=== PATIENT | female | born 1965 | race Two or more races ===

== ENCOUNTER 2021-06-06 14:45 | Emergency (ER) | payer SELFPAY ==
[~2021-06-06] VITALS: Ht 157.5 cm; Wt 81.0 kg
[2021-06-06 15:00] VITALS: BP 143/56
[2021-06-06] MEDS ORDERED: DEXAMETHASONE 4 MG TABLET PO ONE ×2 (15:15→15:30)
[2021-06-06] MEDS ORDERED: ONDA4TAB12 PO (15:25)
[2021-06-06] MEDS ORDERED: ALBU2.5V8 IH (15:25)
[2021-06-06] MEDS ORDERED: AZIT250T PO (15:25)
[2021-06-06] MEDS ORDERED: PRED20TA PO (15:25)
[2021-06-06] MEDS ORDERED: BENZ100C PO (15:25)
--- NOTE | 2021-06-06 15:26 | PHYS DOC ---
Past Medical History Past Medical History: Asthma Past Surgical History: No Surgical History Smoking Status: Never Smoker Alcohol Use: None Drug Use: None General Adult EDM: Chief Complaint: COUGH HPI: HPI: 55-year-old female presents with family with report of nonproductive cough x1 week. Patient also reports associated body aches with subjective fever and chills. Patient also reports associated nausea but denies any vomiting. Denies known exposure to COVID-19. Patient does report she has not received the COVID- 19 vaccination. Reports is able to taste and smell normally. Review of Systems: Review of Systems: Constitutional: Reports subjective fever and chills Eyes: Denies redness or eye pain HENT: Denies nasal congestion or sore throat Respiratory: Denies shortness of breath; reports nonproductive cough Cardiovascular: Denies chest pain or palpitations GI: Denies abdominal pain or vomiting; reports nausea : Denies dysuria or hematuria Musculoskeletal: Denies back pain or joint pain Integument: Denies rash or skin lesions Neurologic: Denies headache, focal weakness or sensory changes Complete systems were reviewed and found to be within normal limits, except as documented in this note. Heart Score: C/O Chest Pain: N/A Current Medications: Current Medications Medications (Trade) Dose Ordered Sig/Manisha Start Time Stop Time Status Last Admin Dose Admin Dexamethasone (Decadron) 10 mg 1X ONCE 06/06/21 15:15 06/06/21 15:16 DC Allergies: Allergies: Allergies Coded Allergies Type Severity Reaction Last Updated Verified No Known Drug Allergies 06/06/21 No Physical Exam: PE: Constitutional: Well developed, well nourished, ill appearing but non-toxic appearance HENT: Normocephalic, atraumatic Eyes: Conjunctiva normal, no discharge Neck: Normal range of motion, supple, no meningeal signs Lungs & Thorax: No respiratory distress, equal chest rise and fall Abdomen: Soft, no tenderness, no guarding Skin: Warm, dry, no erythema, no rash Back: No tenderness, no CVA tenderness Extremities: No tenderness, ROM intact, no edema Neurologic: Alert and oriented X 3, normal motor function, normal sensory function, no focal deficits noted Psychologic: Affect normal, judgment normal Current Patient Data: Vital Signs: Vital Signs Date Time Temp Pulse Resp B/P (MAP) Pulse Ox O2 Delivery O2 Flow Rate FiO2 06/06/21 15:00 100.1 79 12 143/56 98 Room Air 100.1 EKG: EKG: [] Radiology/Procedures: Radiology/Procedures: PROCEDURE: CHEST AP ONLY Portable chest x-ray without comparison for cough. FINDINGS: Lungs are clear. Cardiomediastinum is grossly unremarkable. No significant soft tissue or osseous abnormalities. IMPRESSION: 1. No acute cardiopulmonary abnormality. Electronically signed by: Marcus Carvalho MD (06/06/2021 4:07 PM) [id number] Course & Med Decision Making: Course & Med Decision Making Pertinent Labs and Imaging studies reviewed. (See chart for details) Patient presents with HPI and physical exam concerning for possible COVID-19 infection. Patient does have a history of asthma. Symptomatic treatment provided with oral steroid. Chest x-ray without acute finding. Given history of asthma will prescribe albuterol inhaler and continued steroids along with Tessalon Perles. Patient also given a empiric antibiotic with azithromycin. Patient stable for discharge with outpatient follow-up with PCP. Discussed findings and plan with patient and family, who acknowledge understanding and agreement. COVID-19 CRITERIA: The patient was evaluated during the global COVID-19 pandemic, and that diagnosis was suspected/considered upon their initial presentation. Their evaluation, treatment and testing was consistent with current guidelines for patients who present with complaints or symptoms that may be related to COVID-19. [place] Disclaimer: Dragkaren Disclaimer: This electronic medical record was generated, in whole or in part, using a voice recognition dictation system. Departure Departure Impression: Primary Impression: Bronchitis Additional Impressions: Suspected 2019 novel coronavirus infection Nausea Disposition: HOME / SELF CARE / HOMELESS Condition: STABLE Patient Instructions: Acute Bronchitis, [id number], Nausea, Adult, [id number], Viral Syndrome Additional Instructions: Definicin Se le realiz la prueba de deteccin del COVID-19 o se le diagnostic dicha enfermedad. Es quentin infeccin ocasionada por un nuevo tipo de coronavirus. En la mayora de los casos, el COVID-19 provoca sntomas similares a los del resfriado. En algunas personas, puede ocasionar sntomas ms graves, joyce problemas respiratorios. No existe un tratamiento para el virus COVID-19. El cuerpo elimina la infeccin con el tiempo. El cuidado personal ayuda a aliviar el malestar. Pasos que debe seguir 1. Cuidados personales Descanse cuando sea necesario. Los hbitos saludables pueden ayudarlo a sentirse mejor. Algunas medidas para lograr cambios incluyen lo siguiente: - Elija alimentos saludables, joyce frutas y verduras. Meena abundante cantidad de agua asif todo el da. - Duerma pauly por la noche. - Si fuma, intente no hacerlo. [place] ayudar a mejorar la respiracin. - Evite el alcohol. 2. Mantenga sanos a los dems El virus puede contagiarse a otras personas. Cada vez que estornuda o tose, se liberan gotitas. Las gotitas pueden entrar en la boca, la nariz o los ojos de las personas que se encuentran cerca de usted y ocasionar la infeccin. Para reducir las probabilidades de contagiar el virus COVID-19 a otros, tenga en cuenta lo siguiente: - Qudese en casa el tiempo que el mdico se lo indique. Es posible que deba quedarse en casa hasta que la enfermedad desaparezca. Salga nicamente para recibir atencin mdica o en fredy de urgencia. - Evite las reas pblicas, los eventos o el transporte pblico. No reanude las actividades laborales o escolares hasta que el mdico lo autorice. - Llame previamente si necesita asistir a un centro mdico. Avise que es posible que haya contrado COVID-19. [place] ayudar a que le indiquen adonde debe dirigirse. Judy pueden pedirle que use quentin mscara facial cuando vaya al consultorio. Si llama a los servicios de asistencia mdica de urgencias, avseles que es posible que haya contrado COVID-19. Mientras est en casa: - Evite el contacto directo con otras personas. Mantngase a quentin distancia aproximada de 2 metros. Si es posible, pasen la mayor parte del tiempo en santana separadas. - Use quentin mscara facial si estar en contacto directo con otras personas, por ejemplo, si compartir quenitn habitacin o un vehculo. - Pida a alguien que limpie las superficies comunes de la casa. Limpie picaportes, mesadas y lavamanos con limpiadores domsticos todos los thompson. - Al toser o estornudar, cbrase con un pauelo de papel. Despus de usarlo, deschelo de inmediato. Si no tiene un pauelo de papel, tosa o estornude en el pliegue del codo. - Lvese las zehra con frecuencia. Lvese las zehra despus de estornudar o tos er. Lvese con agua y jabn asif, al menos, 20 segundos. Si no dispone de agua y jabn, use un limpiador de zehra a base de alcohol. - No cocine para otros. Evite compartir objetos personales, joyce tenedores, cucharas o cepillos de dientes. - Mientras est enfermo, evite el contacto directo con las mascotas. No hay indicios de si el virus se transmite a las mascotas. Esta es quentin medida de seguridad que debe tenerse en cuenta hasta que se sepa ms acerca de stefanie virus. El aislamiento puede ser frustrante. La interaccin social puede ayudar. Mantngase en contacto con amigos y familiares por telfono u otros medios tecnolgicos. Puede interactuar con otras personas en el hogar, alex mantenga quentin distancia sandoval de aproximadamente 2 metros. Seguimiento Las pruebas para confirmar la presencia del COVID-19 pueden demorar algunos thompson. Es posible que deba seguir los pasos mencionados anteriormente hasta que estn los resultados de las pruebas. Lo llamarn del consultorio mdico para saber si peres habido algn cambio en [place]. Tambin le avisarn cuando pueda volver a estar cerca de otras personas. Problemas a los que debe estar atento Comunquese con el mdico si no se recupera segn lo previsto o si tiene problemas joyce los siguientes: - Dificultad para respirar - Dolor de pecho - Empeoramiento de los sntomas Si pardeep que tiene quentin urgencia, llame a los servicios de asistencia mdica de urgencias de inmediato. As taken from [employer] [facility] Benzonatate (TESSALON PERLE) 100 Mg Capsule 100 MG PO TID PRN for COUGH, #30 CAP Prov: ЮЛИЯ DWYER DO 06/06/21 Prednisone (PREDNISONE) 20 Mg Tablet 2 TAB PO DAILY for 4 Days, #8 TAB Prov: ЮЛИЯ DWYER DO 06/06/21 Albuterol Sulfate (PROAIR HFA INHALER) 8.5 Gm Hfa.aer.ad 2 PUFF IH PRN Q4-6HRS PRN for wheezing, #1 INHALER 0 Refills Prov: ЮЛИЯ DWYER DO 06/06/21 Azithromycin (ZITHROMAX) 250 Mg Tablet 1 PKG PO UD for bronchitis, #6 TAB Take 2 tablets on day 1 and then 1 tablet each day for the next 4 days as directed Prov: ЮЛИЯ DWYER DO 06/06/21 Ondansetron (ONDANSETRON ODT) 4 Mg Tab.rapdis 1 TAB PO PRN Q6-8HRS PRN for NAUSEA, #16 TAB Prov: ЮЛИЯ DWYER DO 06/06/21 COVID-19 Assessment: COVID-19 Patient Risks: Age 65 or older: No Sign of co-morbidity: Yes Exp to person + for COVID: No Exp to PUI: No Travel from affected area: No Lower respiratory symptoms: Yes Fever: Yes Other: Yes PPE Use: Full PPE with N95 mask or PAPR: Yes ЮЛИЯ DWYER DO Jun 06, 2021 15:25
--- NOTE | 2021-06-06 16:09 | RAD ---
Portable chest x-ray without comparison for cough. FINDINGS: Lungs are clear. Cardiomediastinum is grossly unremarkable. No significant soft tissue or o sseous abnormalities. IMPRESSION: 1. No acute cardiopulmonary abnormality. Electronically signed by: Marcus Carvalho MD (06/06/2021 4:07 PM) [id number]
--- NOTE | 2021-06-09 09:53 | NUR ---
IP: Informed pt of positive covid test and the need to stay home for 10 days. P verbalized understanding.
== END 2021-06-06 15:29 | disposition home or self-care (01) ==
LOC: ER 14:45
DX: U07.1 COVID-19 (principal); J45.909 Unspecified asthma, uncomplicated
CPT/HCPCS: 71045; 99284; U0003; U0005